=== PATIENT | male | born 1965 | race Caucasian/White ===

== ENCOUNTER 2017-01-21 20:16 | Emergency (ER) | payer BC ==
[2017-01-21 20:35] VITALS: BP 134/75
[2017-01-21] MEDS ORDERED: DOXYcycline CAP(*) 100 MG PO ONE (21:14)
--- NOTE | 2017-01-21 21:17 | UC ---
Knee Pain HPI - HPI Summary HPI Summary: 51 yo male with onset of left knee pain yesterday no trauma red and swollen pain with wt bearing - History of Current Complaint Chief Complaint: UCLowerExtremity Stated Complaint: RIGHT KNEE PAIN/SWELLING Time Seen by Provider: 01/21/17 21:06 Hx Obtained From: Patient Onset/Duration: Gradual Onset, Lasting Days Severity Initially: Mild Severity Currently: Moderate Pain Intensity: 6 Pain Scale Used: 0-10 Numeric Character: Dull, Aching Aggravating Factor(s): Movement, Weight Bearing Alleviating Factor(s): Rest, Heat Associated Signs And Symptoms: Positive: Swelling, Redness Able to Bear Weight: Yes - Allergies/Home Medications Allergies/Adverse Reactions: Allergies Allergy/AdvReac Type Severity Reaction Status Date / Time No Known Allergies Allergy Verified 01/21/17 20:35 Home Medications: Home Medications Ibuprofen TAB* [Motrin TAB* 800 MG] 800 mg PO Q6H PRN 01/21/17 [History Confirmed 01/21/17] Levothyroxine TAB* [Synthroid TAB*] 100 mcg PO DAILY 01/21/17 [History Confirmed 01/21/17] PMH/Surg Hx/FS Hx/Imm Hx Previously Healthy: Yes - Surgical History Surgical History: Yes Surgery Procedure, Year, and Place: Laminectomy. Uvula Removed. Tonsillectomy. Adenoidectomy. Vasectomy - Family History Known Family History: Positive: Hypertension - Social History Alcohol Use: None Substance Use Type: None Smoking Status (MU): Never Smoked Tobacco Review of Systems Constitutional: Negative Skin: Negative Eyes: Negative ENT: Negative Respiratory: Negative Cardiovascular: Negative Gastrointestinal: Negative Genitourinary: Negative Motor: Negative Neurovascular: Negative Musculoskeletal: Arthralgia Neurological: Negative Psychological: Negative All Other Systems Reviewed And Are Negative: Yes Physical Exam Triage Information Reviewed: Yes Appearance: Well-Appearing, No Pain Distress, Well-Nourished Vital Signs: Initial Vital Signs Temp 98.8 F 01/21/17 20:29 Pulse 66 01/21/17 20:29 Resp 20 01/21/17 20:29 BP 134/75 01/21/17 20:29 Pulse Ox 99 01/21/17 20:29 Vital Signs Reviewed: Yes Eyes: Positive: Conjunctiva Clear ENT: Positive: Hearing grossly normal. Negative: Nasal congestion, Nasal drainage, Tonsillar exudate, Muffled/hoarse voice Neck: Positive: Supple, Nontender, No Lymphadenopathy Respiratory: Positive: Lungs clear, Normal breath sounds, No respiratory distress, No accessory muscle use Cardiovascular: Positive: RRR, No Murmur Musculoskeletal Exam: Other Musculoskeletal: Positive: Other: - see image Neurological Exam: Normal Neurological: Positive: Alert Psychological Exam: Normal Skin: Positive: Other - skin intact over left knee Knee Pain Course/Dx - Differential Dx/Diagnosis Provider Diagnoses: left prepatellar bursitis Discharge - Discharge Plan Condition: Stable Disposition: HOME Prescriptions: DOXYcycline CAP(*) [DOXYcycline 100MG CAP(*)] 100 mg PO BID #20 cap Ibuprofen TAB* [Motrin TAB* 800 MG] 800 mg PO Q6H PRN #40 tab PRN Reason: Pain Patient Education Materials: Knee Bursitis (ED) Referrals: Augustin Fritz MD [Medical Doctor] - 1 Day Additional Instructions: left PREPATELLAR BURSITIS Images Front/Back of Body, Lg ([place]): 1 - silver dollar sized area of redness/swelling and pain. Hurts to extend knee. Antalgic gait. no knee effusion
== END 2017-01-21 21:31 | disposition home or self-care (01) ==
LOC: UCCORT 20:16
DX: M70.51 Other bursitis of knee, right knee (principal); Y93.9 Activity, unspecified
CPT/HCPCS: 99212; A9270-GY; G0463